=== PATIENT | male | born 1950 | race Hispanic/Latino ===

== ENCOUNTER 2016-09-28 14:45 | Emergency (ER) | payer OTHER, MEDICARE ==
[~2016-09-28] VITALS: Ht 172.7 cm; Wt 72.6 kg
[2016-09-28 14:50] VITALS: BP 119/65
[2016-09-28] MEDS ORDERED: CLARITIN10 M1 PO (15:02)
[2016-09-28] MEDS ORDERED: NORVASC2.5 M1 PO (15:02)
[2016-09-28] MEDS ORDERED: SENOKOT8.6 M2 PO (15:02)
[2016-09-28] MEDS ORDERED: MIRALAX17 G1 PO (15:06)
[2016-09-28] MEDS ORDERED: LACTULOSE10 GM/153 PO (15:14)
--- NOTE | 2016-09-28 15:27 | ED HEAD/FACIAL INJ COMPLAINT ---
History of Present Illness General Chief Complaint: Fall Stated Complaint: FALL Source: patient, family, old records, EMS, W10 Exam Limitations: clinical condition, dementia Vital Signs & Intake/Output Vital Signs & Intake/Output Vital Signs Date Time Temp Pulse Resp B/P B/P Pulse O2 O2 Flow FiO2 Mean Ox Delivery Rate 09/28 1450 98.1 94 16 119/65 94 Room Air Allergies Coded Allergies: NO KNOWN ALLERGIES (08/17/11) Reconcile Medications Amlodipine (Norvasc) 2.5 MG TABLET 1 TAB PO DAILY HTN (Reported) Lactulose 10 GRAM/15 ML SOLUTION 30 ML PO BID CONSTIPATION (Reported) Loratadine (Claritin) 10 MG TABLET 1 TAB PO DAILY ALLERGY (Reported) Polyethylene Glycol 3350 (Miralax) 17 GRAM POWD.PACK 1 PAC PO DAILY CONSTIPATION (Reported) dissolve in water Sennosides (Senokot) 8.6 MG TABLET 1 TAB PO BID CONSTIPATION (Reported) Triage Note: PT FOUND ON FLOOR IN ALF PRONE WITH TOWEL UNDER HIS FACE. PT WAS FACE DOWN INTO TOWEL. PT ARRIVES BY AMBULANCE WITH LARGE HEMATOMA TO FH AND BLOODY NOSE. PT IS NON VERBAL PER EMS STATES THAT IS WHAT ECF NURSE TOLD THEM. PT BLOWING AIR BETWEEN HIS LIPS. Triage Nurses Notes Reviewed? yes Onset: Just prior to arrival Severity: moderate Location: frontal Method of Injury: direct blow, fall Loss of Consciousness: no loss of consciousness HPI: Prior to admission patient fell out of wheelchair onto his upper body and face with his wheelchair landing on top. He sustained facial injuries. There was no loss of consciousness fever chills nausea vomiting diarrhea abdominal pain chest pain shortness of breath headache dysuria noted by staff. Past History Travel History Traveled to [place] past 21 day No Medical History Any Pertinent Medical History? see below for history Neurological: dementia, APHASIA Cardiovascular: CHF, hypertension Gastrointestinal: CONSTIPATION Renal: GOUT Psychiatric: anxiety, depression Blood Disorders: IRON DEF. ANEMIA History of MRSA: No History of VRE: No History of CDIFF: No Surgical History Surgical History: non-contributory Psychosocial History Who do you live with Family Services at Home Home Health Aide What is your primary language Panamanian Tobacco Use: Never used ETOH Use: denies use Illicit Drug Use: denies illicit drug use Family History Hx Contributory? No Review of Systems Review of Systems Constitutional: Reports: no symptoms. EENTM: Reports: no symptoms. Respiratory: Reports: no symptoms. Cardiovascular: Reports: no symptoms. GI: Reports: no symptoms. Genitourinary: Reports: no symptoms. Musculoskeletal: Reports: no symptoms. Skin: Reports: see HPI. Neurological/Psychological: Reports: no symptoms. Hematologic/Endocrine: Reports: no symptoms. Immunologic/Allergic: Reports: no symptoms. All Other Systems: Reviewed and Negative Physical Exam Physical Exam General Appearance: well developed/nourished, awake, mild distress Head: frontal abrasion and contusion Eyes: Bilateral: PERRL, EOMI. Ears, Nose, Throat: normal pharynx, hearing grossly normal, Widened nasal bridge with epistaxis dried no septal hematoma Neck: normal inspection, supple Respiratory: normal breath sounds Cardiovascular: regular rate/rhythm Gastrointestinal: soft, non-tender Back: normal inspection Extremities: normal inspection, normal range of motion, no edema Psychiatric: awake, alert, oriented x 3 Cranial Nerves: normal hearing, PERRL Coordination/Gait: ABN nose to finger (R), ABN nose to finger (L) Motor/Sensory: motor deficit, sensory deficit Reflexes: 2+: bicep (R), bicep (L). Skin: intact, normal color, warm/dry Lymphatic: no anterior cervical jaime Progress Differential Diagnosis: facial fracture, ICH, skull fracture Plan of Care: Orders Procedure Date/time Status CT HEAD WO IV CONTRAST 09/[address] MAXILLOFACIAL W/O CON 09/[address] CERV SPINE WO IV CONTRAST 09/29 1455 Active Diagnostic Imaging: Viewed by Me: CT Scan. Discussed w/RAD: CT Scan. Radiology Impression: 1. No acute intracranial hemorrhage. 2. A small anterior frontal soft tissue swelling without acute skull fracture. 3. Moderate brain volume loss. 4. Moderate ventriculomegaly, more than expected for the degree of brain volume loss and suggests some degree of hydrocephalus. Neurologic evaluation suggested. 5. No acute fracture or dislocation of cervical spine. 6. Mild degenerative disc disease at C5-C6, C6-C7 and C7-T1 levels. 7. No acute facial fracture. Departure Departure Time of Disposition: 1658 Disposition: STILL A PATIENT Condition: Stable Clinical Impression Primary Impression: Contusion of face Qualifiers: Encounter type: initial encounter Qualified Code: S00.83XA - Contusion of other part of head, initial encounter Secondary Impressions: Fall at detention Qualifiers: Encounter type: initial encounter Qualified Codes: W19.XXXA - Unspecified fall, initial encounter; Y92.129 - Unspecified place in detention as the place of occurrence of the external cause Referrals: MEDARDO GONZALEZ MD (PCP/Family) Departure Forms: Customer Survey General Discharge Information
--- NOTE | 2016-09-28 16:33 | CT SCAN REPORT ---
EXAMINATION: CT HEAD WITHOUT CONTRAST CLINICAL INFORMATION: Fall, frontal contusion COMPARISON: 10/08/2012 CT scan of head TECHNIQUE: Contiguous axial imaging all of the head and face were performed from the skull base to vertex without intravenous administration of contrast. In addition, helical noncontrast CT imaging was acquired through the cervical spine and source images were reviewed along with axial reconstructions and sagittal and coronal MPRs. DLP: 1856.94 mGy-cm. FINDINGS: CT HEAD: There is moderate loss of brain volume with associated dilatation of CSF spaces, more than expected for patient's age. There is moderate symmetrical dilatation of the ventricles with dilatation of the temporal horn of lateral ventricles. The dilatation of ventricles is more than expected for the degree of brain volume loss and suggests some degree of hydrocephalus. There is no evidence of acute intracranial hemorrhage or territorial infarction. No abnormal mass effect or midline shift is seen. Tate to white matter differentiation is well preserved. No extra-axial fluid collections are identified. Although the exam is somehow limited due to presence of motion artifact, no acute skull fracture is seen. There is anterior frontal soft tissue swelling, measures about 2.5 cm in transverse diameter and about 7 mm in thickness. The mastoid air cells and visualized portions of the paranasal sinuses are well aerated. CT CERVICAL SPINE: The vertebral body height and alignment of cervical spine are within normal limits. There is mild narrowing of C5-C6, C6-C7 and C7-T1 intervertebral disc spaces with adjacent small marginal osteophytes. The intervertebral disc spaces are otherwise well preserved. The craniocervical and cervicothoracic junctions are within normal limits. The posterior elements are intact. There is no acute fracture or dislocation of cervical spine. The paraspinal soft tissue is unremarkable. Atelectatic changes in the posterior right upper lobe noted. The visualized lung apices are otherwise clear. No pneumothorax. CT MAXILLOFACIAL : There is no acute facial fracture. The temporomandibular joints are unremarkable without evidence of acute traumatic injury. The visualized paranasal sinuses and mastoid air cells are clear. The orbits are intact. No nasal bone fracture. IMPRESSION: 1. No acute intracranial hemorrhage. 2. A small anterior frontal soft tissue swelling without acute skull fracture. 3. Moderate brain volume loss. 4. Moderate ventriculomegaly, more than expected for the degree of brain volume loss and suggests some degree of hydrocephalus. Neurologic evaluation suggested. 5. No acute fracture or dislocation of cervical spine. 6. Mild degenerative disc disease at C5-C6, C6-C7 and C7-T1 levels. 7. No acute facial fracture.
== END 2016-09-28 17:37 ==
LOC: ERH 14:45
DX: S00.83XA Contusion of other part of head, initial encounter (principal); W05.0XXA Fall from non-moving wheelchair, initial encounter; Y92.129 Unspecified place in nursing home as the place of occurrence of the external cause; Y93.9 Activity, unspecified

== ENCOUNTER 2017-10-21 03:40 | Inpatient (IN) | payer OTHER ==
[~2017-10-21] VITALS: Ht 177.8 cm; Wt 82.4 kg
[~2017-10-21 03:40] MED LIST: CLARITIN10 M1 PO; LACTULOSE10 GM/153 PO; MIRALAX17 G1 PO; NORVASC2.5 M1 PO; SENOKOT8.6 M2 PO
--- NOTE | 2017-10-21 03:47 | ED DYSPNEA/ASTHMA COMPLAINT ---
History of Present Illness General Chief Complaint: General Adult Stated Complaint: BIBA ? HYPOTENSION Source: old records, EMS, [facility] Exam Limitations: not alert/orientated Vital Signs & Intake/Output Vital Signs & Intake/Output Vital Signs Date Time Temp Pulse Resp B/P B/P Pulse O2 O2 Flow FiO2 Mean Ox Delivery Rate 10/21 0552 71 18 104/65 94 Nasal 2.0L Cannula 10/21 0522 97.8 94 18 115/74 94 Nasal 2.0L Cannula 10/21 0518 92/60 10/21 0504 97.8 92 18 92/60 97 Nasal 2.0L Cannula 10/21 0441 103/66 10/21 0431 85/65 10/21 0403 78 18 95/69 94 Room Air 10/21 0400 95 Room Air 10/21 0346 97.6 85 20 86/58 93 Room Air Allergies Coded Allergies: NO KNOWN ALLERGIES (08/17/11) Reconcile Medications Amlodipine (Norvasc) 2.5 MG TABLET 1 TAB PO DAILY HTN (Reported) Lactulose 10 GRAM/15 ML SOLUTION 30 ML PO BID CONSTIPATION (Reported) Loratadine (Claritin) 10 MG TABLET 1 TAB PO DAILY ALLERGY (Reported) Polyethylene Glycol 3350 (Miralax) 17 GRAM POWD.PACK 1 PAC PO DAILY CONSTIPATION (Reported) dissolve in water Sennosides (Senokot) 8.6 MG TABLET 1 TAB PO BID CONSTIPATION (Reported) Triage Nurses Notes Reviewed? yes Onset: Gradual Duration: hour(s): Timing: recent history Severity: moderate Activities at Onset: none Prior Episodes/Possible Cause: no prior episodes Associated Symptoms: cough HPI: 67-year-old gentleman presents from a retirement facility with a history of a aphasia and dementia. The nurse practitioner of the SNF called saying that his systolic blood pressure was 70. 911 was called. Upon their arrival the medics found that his systolic blood pressure was 95. His O2 sat was 88% when lying flat but improved to 92-93 % on room air and corrected to 97% on 2 L nasal cannula. Per the medics there has been no vomiting diarrhea or trauma. Per their assessment, "he felt warm." Past History Travel History Traveled to [place] past 21 day No Medical History Any Pertinent Medical History? see below for history Neurological: dementia, APHASIA Cardiovascular: CHF, hypertension Gastrointestinal: CONSTIPATION Renal: GOUT Psychiatric: anxiety, depression Blood Disorders: IRON DEF. ANEMIA History of MRSA: No History of VRE: No History of CDIFF: No Surgical History Surgical History: non-contributory Psychosocial History Who do you live with Family Services at Home Home Health Aide What is your primary language Tunisian Family History Hx Contributory? No Review of Systems Review of Systems Constitutional: Reports: no symptoms. EENTM: Reports: no symptoms. Respiratory: Reports: no symptoms. Cardiovascular: Reports: no symptoms. GI: Reports: no symptoms. Genitourinary: Reports: no symptoms. Musculoskeletal: Reports: no symptoms. Skin: Reports: no symptoms. Neurological/Psychological: Reports: no symptoms. Hematologic/Endocrine: Reports: no symptoms. Immunologic/Allergic: Reports: no symptoms. All Other Systems: Reviewed and Negative Physical Exam Physical Exam Respiratory: rhonchi Comments: Review of Systems - except as otherwise noted in HPI All Other Systems: Reviewed and Negative Physical Exam Physical Exam General Appearance: well developed/nourished, no apparent distress Head: atraumatic, normal appearance Eyes: Bilateral: normal appearance. Ears, Nose, Throat: normal pharynx, dry mucosa Neck: normal inspection, supple, full range of motion Respiratory:chest non-tender, BILATERAL RHONCHI, NO RALES/WHEEZES Cardiovascular: regular rate/rhythm Gastrointestinal: normal bowel sounds, soft, non-tender, no organomegaly Back: normal inspection, normal range of motion Extremities: normal inspection, normal capillary refill, normal range of motion, no edema Neurologic/Psych: no motor/sensory deficits, awake, nonverbal Skin: intact, normal color, warm/dry, poor skin turgor. Core Measures ACS in differential dx? No CVA/TIA Diagnosis No Sepsis Present: No Sepsis Focused Exam Completed? No Progress Differential Diagnosis: asthma, bronchitis, CHF, COPD, pneumonia Plan of Care: Orders Procedure Date/time Status Nothing by Mouth 10/21 B Active Saline Lock 10/21 06 Active Misc Message 10/21 06 Active ED Holding Orders 10/21 06 Active Admit to inpatient 10/21 0602 Active Vital Signs 10/21 06 Active Code Status 10/21 06 Active URINALYSIS 10/21 0508 Complete EKG 10/21 0415 Active TROPONIN LEVEL 10/21 0346 Complete LIPASE 10/21 0346 Complete HEPATIC FUNCTION PANEL 10/21 0346 Complete CBC WITHOUT DIFFERENTIAL 10/21 0346 Complete BASIC METABOLIC PANEL 10/21 0346 Complete AMYLASE 10/21 0346 Complete EKG 10/21 0346 Active Current Medications Sig/Sharda Start time Last Medication Dose Stop Time Status Admin Sodium Chloride 1,000 ML BOLUS ONE 10/21 0545 UNVr 10/21 (Normal Saline 0.9%) 10/21 0644 0538 Sodium Chloride 500 ML BOLUS ONE 10/21 043 UNVr 10/21 (Normal Saline 0.9%) 10/21 05 043 Laboratory Tests 10/21/17 0519: Urinalysis LIGHT H, Urine Color YEL, Urine Clarity CLEAR, Urine pH 6.0, Ur Specific [place] 1.025, Urine Protein 30 H, Urine Ketones TRACE H, Urine Nitrite NEG, Urine Bilirubin NEG, Urine Urobilinogen 1.0, Ur Leukocyte Esterase TRACE H, Ur Microscopic SEDIMENT EXAMINED, Urine RBC 3-5, Urine WBC 1-3 H, Urine Bacteria MANY H, Urine Hemoglobin MOD H, Urine Glucose NEG 10/21/17 0410: Anion Gap 10, Estimated GFR 43 L, BUN/Creatinine Ratio 18.8, Glucose 111 H, Calcium 9.2, Total Bilirubin 0.5, Direct Bilirubin 0.3, AST 21, ALT 33, Alkaline Phosphatase 110, Troponin I < 0.01, Total Protein 6.9, Albumin 3.4 L, Amylase 83, Lipase 128, CBC w Diff NO MAN DIFF REQ, RBC 4.01 L, MCV 94.2 H, MCH 31.2 H, MCHC 33.1, RDW 13.3, MPV 8.5, Gran % 57.3, Lymphocytes % 24.8, Monocytes % 16.9 H, Eosinophils % 0.8, Basophils % 0.2, Absolute Granulocytes 4.6, Absolute Lymphocytes 2.0, Absolute Monocytes 1.3 H, Absolute Eosinophils 0.1, Absolute Basophils 0 Diagnostic Imaging: Viewed by Me: Radiology Read. Discussed w/RAD: Radiology Read. CXR Impression: PATIENT: STEFFI TRISTAN PRESENT AGE: 67 PATIENT ACCOUNT NO: [id number] : 48 LOCATION: [facility] ORDERING PHYSICIAN: Laurent Arrieta MD SERVICE DATE: 10/21/17 EXAM TYPE: RAD - XRY-PORTABLE CHEST XRAY EXAMINATION: XR PORTABLE CHEST CLINICAL INFORMATION: Chest pain COMPARISON: 10/08/2012 TECHNIQUE: Portable frontal view of the chest was obtained. FINDINGS: Cardiac leads overlie the chest. Lung volumes are low with bronchovascular crowding. No dense consolidation. No pleural effusion or pneumothorax. The cardiomediastinal silhouette is unchanged, with a calcified aorta. IMPRESSION: Low lung volumes with bronchovascular crowding. No dense consolidation. DICTATED BY: Chester Lakhani MD DATE/TIME DICTATED:10/21/17421 SEEING EYE DOG TEACHER:MONTSERRAT DATE/TIME TRANSCRIBED:421 CONFIDENTIAL, DO NOT COPY WITHOUT APPROPRIATE AUTHORIZATION. < Electronically signed in Other Vendor System> SIGNED BY: Kar REYNOSO, Chester 10/21/17427 Initial ED EKG: afib, likely artifact. Repeat EKG: unchanged Comments: EKG... significant artifact... appears regular rhythm. i doubt afib. Departure Departure Disposition: STILL A PATIENT Condition: Stable Clinical Impression Primary Impression: Dehydration Secondary Impressions: Acute renal failure Referrals: Joann Valentino MD Departure Forms: Customer Survey General Discharge Information Admission Note [facility] Documentation of Exam: Documentation of any treatments & extenuating circumstances including Concerns Regarding Discharge (functional status, medication knowledge or non-compliance, living conditions, etc.) that warrant an admission rather than observation: pt with elevated creatinine, hypotensive, but afebrile with normal WBC count... I doubt infection/distributive shock. Pt merits iv fluids, follow electrolytes in context of his chf history. Critical Care Note Critical Care Note Critical Care Time: 30-74 min
[2017-10-21 04:21] LABS: ABSOLUTE BASOPHIL COUNT 0 /CUMM (0.0-0.2); ABSOLUTE EOSINOPHIL COUNT 0.1 /CUMM (0.0-0.7); ABSOLUTE GRANULOCYTE CT 4.6 /CUMM (1.4-6.5); ABSOLUTE MONOCYTE COUNT 1.3 /CUMM (0.10-0.60); BASOPHIL % 0.2 % (0.0-2.0); EOSINOPHIL % 0.8 % (0-5); GRANULOCYTE % 57.3 % (42.2-75.2); HEMATOCRIT 37.8 % (42-52); MEAN CORPUSCULAR HGB 31.2 PG (27.0-31.0); MEAN CORPUSCULAR HGB CONC 33.1 G/DL (33.0-37.0); MEAN CORPUSCULAR VOLUME 94.2 FL (80.0-94.0); MEAN PLATELET VOLUME 8.5 FL (7.4-10.4); PLATELET COUNT 267 /CUMM (130-400); RBC DISTRIBUTION WIDTH 13.3 % (11.5-14.5); RED BLOOD CELL CT 4.01 /CUMM (4.70-6.10)
--- NOTE | 2017-10-21 04:28 | RADIOLOGY REPORT ---
EXAMINATION: XR PORTABLE CHEST CLINICAL INFORMATION: Chest pain COMPARISON: 10/08/2012 TECHNIQUE: Portable frontal view of the chest was obtained. FINDINGS: Cardiac leads overlie the chest. Lung volumes are low with bronchovascular crowding. No dense consolidation. No pleural effusion or pneumothorax. The cardiomediastinal silhouette is unchanged, with a calcified aorta. IMPRESSION: Low lung volumes with bronchovascular crowding. No dense consolidation.
--- NOTE | 2017-10-21 09:03 | History & Physical ---
Ismael Jeter 10/21/17 0832: General Information and HPI MD Statement: I have seen and personally examined STEFFI TRISTAN and documented this H&P. The patient is a 67 year old M who presented with a patient stated chief complaint of [hypotension and chest congestion]. Source of Information: family, old records Exam Limitations: unable to give history, dementia, physical impairment History of Present Illness: Mr. Tristan is a 67 year old gentleman who comes from [facility] after being found hypotensive. He is accompanied by his and daughter who provide his history as he has dementia and aphasia. He also has a PMH of HTN, and gout. Per the EMS report, the patient was found be to hypotensive 76/60 at which point EMS was called. Upon their arrival the patients BP had improved, however his O2 sat was in the high 80s, which corrected when he was sat up to 93%. As the patient is aphasic, and cognitively impaired, it is difficult to assess the review of symptoms, however, the family notes that he appears to be at his baseline, but has been congested over the last few days and has been coughing, non-productive. They deny any fevers, or chills. They denied any change in his PO intake, and state he actually has been eating quite well. He eats a pureed diet/thin liquids. In the ER, the patient's blood pressure was 86/58, pulse ox 93% on 2 L, respiratory rate 20, heart rate 85, temperature 97.6. The patients blood pressure responded to normal saline, up to 117/60. Labs, H&H 12.5/37.8, white blood cell count 8.0. Electrolytes unremarkable, BUNs/creatinine 30/1.6, glucose 111, troponin less than 0.01. UA showed proteinuria with trace ketones, trace leukocyte esterase, nitrite negative, 1-3 white blood cells with no epithelial cells, urine hemoglobin and bacteria. Lactic acid pending. CXR showed low lung volumes with bronchovascular crowding. No dense consolidation. No pleural effusion or pneumothorax. The cardiomediastinal silhouette is unchanged, with a calcified aorta. Allergies/Medications Allergies: Coded Allergies: NO KNOWN ALLERGIES (08/17/11) Home Med list Amlodipine (Norvasc) 2.5 MG TABLET 1 TAB PO DAILY HTN (Reported) Lactulose 10 GRAM/15 ML SOLUTION 30 ML PO BID CONSTIPATION (Reported) Loratadine (Claritin) 10 MG TABLET 1 TAB PO DAILY ALLERGY (Reported) Polyethylene Glycol 3350 (Miralax) 17 GRAM POWD.PACK 1 PAC PO DAILY CONSTIPATION (Reported) dissolve in water Sennosides (Senokot) 8.6 MG TABLET 1 TAB PO BID CONSTIPATION (Reported) Past History Travel History Traveled to [place] past 21 day No Medical History Neurological: dementia, APHASIA Cardiovascular: CHF, hypertension Gastrointestinal: CONSTIPATION Renal: GOUT Psychiatric: anxiety, depression Blood Disorders: IRON DEF. ANEMIA History of MRSA: No History of VRE: No History of CDIFF: No Surgical History Surgical History: non-contributory Past Family/Social History Psychosocial History [facility] do you [facility] Functional Ability ADLs Needs Assist: dressing, eating, toileting, bathing. Ambulation: wheelchair IADLs Needs Assist: shopping, housework, finances, food prep, telephone, transportation, medication admin. Employment History Employment [employer] Review of Systems Review of Systems Constitutional: Reports: see HPI. Exam & Diagnostic Data Last 24 Hrs of Vital Signs/I&O Vital Signs Date Time Temp Pulse Resp B/P B/P Pulse O2 O2 Flow FiO2 Mean Ox Delivery Rate 10/21 0839 98.3 83 18 94/76 94 / 0810 97.3 74 20 103/62 96 Nasal 2.0L Cannula 10/21 0658 79 18 117/60 94 Nasal 2.0L Cannula 10/21 0630 97.6 67 18 114/73 96 Nasal 2.0L Cannula 10/21 0552 71 18 104/65 94 Nasal 2.0L Cannula 10/21 0522 97.8 94 18 115/74 94 Nasal 2.0L Cannula / 0518 92/60 05/30 0504 97.8 92 18 92/60 97 Nasal 2.0L Cannula / 0441 103/66 05/30 0431 85/65 / 0403 78 18 95/69 94 Room Air / 0400 95 Room Air / 0346 97.6 85 20 86/58 93 Room Air Intake & Output / 1600 05/30 0800 05/30 0000 Intake Total Output Total Balance Patient 79.379 kg Weight Weight Estimated Measurement Method Physical Exam General Appearance Alert, Cooperative, No Acute Distress, not oriented. non- responsive. Skin No Rashes Skin Temp/Moisture Exam: Warm/Dry HEENT Atraumatic, PERRLA, dry mucus membranes. Neck No JVD Cardiovascular Normal S1, Normal S2 Lungs rhonchi appreciated diffusely in the anterior lung pruitt. No wheezing. Abdomen Normal Bowel Sounds, Soft, No Tenderness Extremities No Tenderness/Swelling Sepsis Peripheral Pulse Location: Radial Sepsis Peripheral Pulse Exam: Normal Sepsis Cap Refill Exam: <2 Sec Last 24 Hrs of Labs/Dwayne: Laboratory Tests 10/21/17 0915: Lactic Acid Pending 10/21/17 0519: Urinalysis LIGHT H, Urine Color YEL, Urine Clarity CLEAR, Urine pH 6.0, Ur Specific [place] 1.025, Urine Protein 30 H, Urine Ketones TRACE H, Urine Nitrite NEG, Urine Bilirubin NEG, Urine Urobilinogen 1.0, Ur Leukocyte Esterase TRACE H, Ur Microscopic SEDIMENT EXAMINED, Urine RBC 3-5, Urine WBC 1-3 H, Urine Bacteria MANY H, Urine Hemoglobin MOD H, Urine Glucose NEG 10/21/17 0410: Anion Gap 10, Estimated GFR 43 L, BUN/Creatinine Ratio 18.8, Glucose 111 H, Calcium 9.2, Total Bilirubin 0.5, Direct Bilirubin 0.3, AST 21, ALT 33, Alkaline Phosphatase 110, Troponin I < 0.01, Total Protein 6.9, Albumin 3.4 L, Amylase 83, Lipase 128, CBC w Diff NO MAN DIFF REQ, RBC 4.01 L, MCV 94.2 H, MCH 31.2 H, MCHC 33.1, RDW 13.3, MPV 8.5, Gran % 57.3, Lymphocytes % 24.8, Monocytes % 16.9 H, Eosinophils % 0.8, Basophils % 0.2, Absolute Granulocytes 4.6, Absolute Lymphocytes 2.0, Absolute Monocytes 1.3 H, Absolute Eosinophils 0.1, Absolute Basophils 0 Diagnostic Data EKG Results NSR Assessment/Plan Assessment: Mr. Tristan is a 67 year old gentleman who comes from [facility] after being found hypotensive. He is accompanied by his and daughter who provide his history as he has dementia and aphasia. He also has a PMH of HTN. Labs, H&H 12.5/37.8, white blood cell count 8.0. Electrolytes unremarkable, BUNs/creatinine 30/1.6, glucose 111, troponin less than 0.01. UA showed proteinuria with trace ketones, trace leukocyte esterase, nitrite negative, 1-3 white blood cells with no epithelial cells, urine hemoglobin and bacteria. Lactic acid pending. CXR showed low lung volumes with bronchovascular crowding. No dense consolidation. No pleural effusion or pneumothorax. The cardiomediastinal silhouette is unchanged, with a calcified aorta. Problem List * Hypotension * Chest congestion * TRACIE * Hx of dementia with aphasia * Hx of HTN Assessment and Plan Hypotension with TRACIE * The patient has a history of HTN, so in spite of BP in the 90s, he is hypotensive compared to his baseline. He does appear slightly dry however his chest congestion may be concerning for a brewing infection, although he is afebrile and does not have a white count. Other possible source of infection or urinary with pyuria, however again he was not febrile and does not have an elevated white count. * Other possible causes of hypotension include decreased by mouth intake, although the family states otherwise. * We will admit the pt to for fluid resus. and TRACIE. Hold amlodipine. * The patient has been responsive to fluids, and appears clinically at his baseline. * Aside from BP measurements he does have evidence of hypotension given his acute kidney injury. We will reevaluate labs at 1200 with a repeat lactic acid and determine if his HPI was indeed secondary to prerenal causes. * For his chest congestion, we will give liquid guaifenesin to try and help him expectorate. * If his hypotension continues in spite of fluid resuscitation, we will consider starting him on antibiotic coverage to cover HCAP as he comes from a SNF. Additionally, we will draw blood cultures and send urine cultures, along w urine strep/legionella Ag. FULL CODE Puree food/thin liquid ALPS for dvt ppx pain path as ordered. As Ranked By This Provider Problem List: 1. Dehydration 2. Acute renal failure 3. DEMENTIA (APHASIC) Core Measures/Misc (02/08) Acute Coronary Syndrome ACS Diagnosis: No Congestive Heart Failure Congestive Heart Failure Diagnosis No Cerebrovascular Accident CVA/TIA Diagnosis: No VTE (View Protocol) VTE Risk Factors Age>40 No Mechanical VTE Prophylaxis d/t N/A MechProphylax Ordered No VTE Pharm Prophylaxis d/t Other Sepsis (View protocol) Sepsis Present: No If YES complete Sepsis Event Note If YES complete Sepsis Event Note Arole MD,Yonathanwilliam 10/21/17 1533: Core Measures/Misc (02/08) Sepsis (View protocol) If YES complete Sepsis Event Note If YES complete Sepsis Event Note Attending MD Review Statement Attending Statement Attending MD Statement: examined this patient, discuss w/resident/PA/NETWORK CONTROLLER, agreed w/resident/PA/NETWORK CONTROLLER, reviewed EMR data (avail), discussed with nursing, discussed with case mgmt, amended to note Attending Assessment/Plan: Patient seen and examined. History and physical is as documented by the certified medical technician assistant above. Unable to obtain any history from the patient due to his dementia. Etiology of his hypotension is presumed to be due to volume depletion however there is no clear evidence of why he is volume depleted. Given his dementia poor oral intake may be the cause. There has been no report of diarrhea or vomiting. Hemoglobin level is stable and not suggestive of bleeding. Recommendations: -Admit to the inpatient medical service. -Continue maintenance hydration with half normal saline at 75 cc an hour. -Hold his amlodipine for now. -Check random cortisol level. -Check orthostatic vitals. -Resume his diet. -Supportive care for his dementia
[2017-10-21 14:21] VITALS: BP 110/64
[2017-10-21 23:24] VITALS: BP 118/78
[2017-10-22 06:29] VITALS: BP 100/80
--- NOTE | 2017-10-22 07:53 | PN- Housestaff ---
Ian REYNOSO,Lashawn 10/22/17 0752: Subjective Follow-up For: Hypotension TRACIE - resolved H/O Dementia with progressive aphasia Chest congestion Subjective: Patient was seen and examined today. Patient's family was present this morning. Report patient is back to his baseline. Patient is nonverbal at baseline, does not follow commands. Per family he will open his eyes when he wants to and tends to look at the ceiling. No acute events overnight. Review of Systems Constitutional: Reports: see HPI. Objective Last 24 Hrs of Vital Signs/I&O Vital Signs Date Time Temp Pulse Resp B/P B/P Pulse O2 O2 Flow FiO2 Mean Ox Delivery Rate 10/22 1429 97.6 67 20 116/74 97 Nasal Cannula 10/22 1423 96 Nasal 2.0L Cannula 10/22 0800 94 Nasal 2.0L Cannula 10/22 0629 98.1 83 20 100/80 94 Room Air 10/21 2324 98.1 83 18 118/78 93 Nasal Cannula 10/21 2156 Nasal 2.0L Cannula 10/21 1705 93 Nasal 2.0L Cannula 10/21 1702 Nasal 2.0L Cannula Intake & Output 10/22 1600 10/22 0800 10/22 0000 Intake Total 480 200 Output Total Balance 480 200 Intake, IV 200 Intake, Oral 480 Number 0 Bowel Movements Patient 179 lb Weight Weight Bed scale Measurement Method Physical Exam General Appearance: Alert, No Acute Distress, does not follow commands, resting comfortably Skin Temp/Moisture Exam: Warm/Dry HEENT: Atraumatic, Mucous Membr. moist/pink Cardiovascular: Regular Rate, Normal S1, Normal S2 Lungs: coarse breath sounds Abdomen: Normal Bowel Sounds, Soft, No Tenderness Neurological: unable to assess due to aphasia, not following commands Extremities: No Clubbing, No Cyanosis, No Edema, Normal Pulses, No Tenderness/ Swelling Current Medications: Current Medications Sig/Sharda Start time Last Medication Dose Route Stop Time Status Admin Acetaminophen 650 MG Q6 PRN 10/21 0815 AC PO Acetaminophen 325 MG Q6P PRN 10/21 0815 AC PO Albuterol Sulfate 3 ML Q4P PRN 10/21 1715 AC INH Dextrose/Sodium 1,000 ML Q13H 10/22 1545 AC 10/22 Chloride IV 10/23 0444 1612 Dextrose/Sodium 1,000 ML Q13H 10/21 1500 DC Chloride IV 10/22 0359 Guaifenesin 10 ML Q6P PRN 10/21 914 AC PO Lactulose 20 GM DAILY 10/21 0900 AC 10/21 PO 0915 Loratadine 10 MG DAILY 10/21 09 AC 10/21 PO 0915 Nystatin 1 JOSE ALEJANDRO BID 10/21 2100 AC 10/22 TOP 0855 Polyethylene Glycol 17 GM DAILY 10/21 0900 AC 10/21 PO 0915 Potassium Chloride 10 MEQ Q1H 10/21 1830 DC 10/22 IV 10/21 1931 0007 Senna 187 MG AT BEDTIME 10/21 2100 AC PO Last 24 Hrs of Lab/Dwayne Results Last 24 Hrs of Labs/Mics: Laboratory Tests 10/22/17 0607: Anion Gap 9, Estimated GFR > 60, BUN/Creatinine Ratio 23.8, CBC w Diff NO MAN DIFF REQ, RBC 3.66 L, MCV 93.9, MCH 31.9 H, MCHC 34.0, RDW 13.5, MPV 8.6, Gran % 57.1, Lymphocytes % 29.0, Monocytes % 11.2 H, Eosinophils % 2.2, Basophils % 0.5, Absolute Granulocytes 4.6, Absolute Lymphocytes 2.3, Absolute Monocytes 0.9 H, Absolute Eosinophils 0.2, Absolute Basophils 0 Microbiology 10/22 1533 LOWER RESP: Respiratory Culture - COLB 10/22 1533 LOWER RESP: Gram Stain - COLB Assessment/Plan Assessment: Patient is a 67 y/o male with PMH of dementia with progressive aphasia, HTN, gout, presenting from [facility] after being found to be hypotensive. Patient is admitted to the telemetry floor for management of the followin. Hypotension - likely secondary to dehydration, resolved. 2. TRACIE secondary to dehydration, resolved. 3. Chest congestion and cough, possible aspiration -modified barium swallow today. 4. Chronic conditions: dementia with progressive aphasia Plan: continuous tele monitoring gentle IV hydration repeat BEP in AM strict I/O TRC CHest PT DuoNeb Continue home medications Failed swallow evaluation. MBS done today. Will place on ground and nectar thick diet. Code: FC DVT PPx: ALPS Diet: ground with nectar thick Problem List: 1. Dehydration 2. Acute renal failure 3. DEMENTIA (APHASIC) Pain Ratin Pain Location: n/a Pain Goal: Remain pain free Pain Plan: tylenol PRN Tomorrow's Labs & Rationales: CBC BEP Harleen REYNOSO,Shayla 10/22/17 1110: Attending MD Review Statement Attending Statement Attending MD Statement: examined this patient, discuss w/resident/PA/CARPENTER MINE, agreed w/resident/PA/CARPENTER MINE, reviewed EMR data (avail) Attending Assessment/Plan: 67M PMH HTN, gout, progressive aphasia brought in from [facility] for hypotension. 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 Over the past 8 years he went from working and speaking normally to his current state, which is bedbound, aphasic, and minimally interactive with his environment. He was found to be hypotension in ER 76/60, but this improved with IV hydration. Per daughter the patient has had a deep cough for 4 days. He is at his baseline mental status. He had TRACIE on admission that resolved. 1. Hypotension 2. TRACIE 3. Dehydration 4. Aphasia Plan - Continue as general medicine, no telemetry - Gentle IV hydration - Barium swallow - Speech therapy consult - Sputum culture - Elevate head of bed - Suctioning - DVT PPx - Continue home meds - Anticipated discharge back to [facility] tomorrow
[2017-10-22 08:26] LABS: ABSOLUTE BASOPHIL COUNT 0 /CUMM (0.0-0.2); ABSOLUTE EOSINOPHIL COUNT 0.2 /CUMM (0.0-0.7); ABSOLUTE GRANULOCYTE CT 4.6 /CUMM (1.4-6.5); ABSOLUTE LYMPH COUNT 2.3 /CUMM (1.2-3.4); ABSOLUTE MONOCYTE COUNT 0.9 /CUMM (0.10-0.60); BASOPHIL % 0.5 % (0.0-2.0); EOSINOPHIL % 2.2 % (0-5); GRANULOCYTE % 57.1 % (42.2-75.2); HEMATOCRIT 34.4 % (42-52); MEAN CORPUSCULAR HGB 31.9 PG (27.0-31.0); MEAN CORPUSCULAR VOLUME 93.9 FL (80.0-94.0); MEAN PLATELET VOLUME 8.6 FL (7.4-10.4); PLATELET COUNT 297 /CUMM (130-400); RBC DISTRIBUTION WIDTH 13.5 % (11.5-14.5); RED BLOOD CELL CT 3.66 /CUMM (4.70-6.10); WHITE BLOOD CELL COUNT 8.1 /CUMM (4.8-10.8)
--- NOTE | 2017-10-22 10:34 | Discharge Summary ---
Visit Information Visit Dates Admission Date: 10/21/17 Discharge Date: 10/23/17 Hospital Course Course Attending Physician: Shayla Canseco MD Primary Care Physician: Alisha Hardy MD Hospital Course: 67 year old gentleman with pmh of dementia with progressive aphasia of unknow etiology by the [facility], HTN, gout sent to [facility] after being found hypotensive (76/60) [facility]. In ED blood pressure was 86/58, pulse ox 93% on 2 L, respiratory rate 20, heart rate 85, temperature 97.6. The patients blood pressure responded to normal saline, up to 117/60. Labs, H&H 12.5/37.8, white blood cell count 8.0. Electrolytes unremarkable, BUNs/creatinine 30/1.6, glucose 111, troponin less than 0.01. UA showed proteinuria with trace ketones, trace leukocyte esterase, nitrite negative, 1-3 white blood cells with no epithelial cells, urine hemoglobin and bacteria. CXR showed low lung volumes with bronchovascular crowding. No dense consolidation. No pleural effusion or pneumothorax. The cardiomediastinal silhouette is unchanged, with a calcified aorta. For his hypotension with TRACIE which was thought to be likely secondary to poor PO intake and dehydration, he was given gentle IVF and his amlodipine was held throughout his hospital course and will be held upon discharge. His BP improved and remained stable with resolution of his TRACIE. Preliminary blood cultures and urine culture showed now growth. Urine strep/legionella Ag were negative. He underwent Barium Swallow which demonstrated significant pooling of the material in the vallecula with multiple consistencies. Deep penetration without aspiration was demonstrated when swallowing thin barium. Ground and nectar thick diet was recommended for him. We strongly urge ongoing discussions with family regarding goals care. Please consider engaging hospice and treatment in place rather that transfer to hospital. Complications: none Allergies: Coded Allergies: NO KNOWN ALLERGIES (08/17/11) Significant Procedures: MODIFIED BARIUM SWALLOW FINDINGS: The patient initiated the swallowing mechanism normally. There was a small residual volume of puree, in the vallecula despite repeat swallowing. The patient swallowed honey well, but there was pooling in the vallecula, which did clear with multiple swallows. Thin barium was given through a spoon. There was deep penetration without sneha aspiration. No sensation was elicited. IMPRESSION: 1. The study demonstrates significant pooling of the material in the vallecula with multiple consistencies. 2. Deep penetration without aspiration was demonstrated when swallowing thin barium. Disposition Summary Disposition Principal Diagnosis: Hypotension Additional Diagnosis: Acute kidney injury Aspiration progressive aphasia of unknow etiology Discharge Disposition: SNF Discharge Instructions General Discharge Information Code Status: Full Code Patient's Diet: ground and nectar thick diet. Patient's Activity: as tolerated Follow-Up Instructions/Appts: follow up with your PCP Medications at Discharge Discharge Medications: Stop taking the following medications: Amlodipine (Norvasc) 2.5 MG TABLET ORAL DAILY Continue taking these medications: Loratadine (Claritin) 10 MG TABLET 1 Tablet ORAL DAILY Sennosides (Senokot) 8.6 MG TABLET 1 Tablet ORAL TWICE DAILY Polyethylene Glycol 3350 (Miralax) 17 GRAM POWD.PACK 1 Packet ORAL DAILY Instructions: dissolve in water Lactulose (Lactulose) 10 GRAM/15 ML SOLUTION 30 Milliliters ORAL TWICE DAILY Copies To: Antony REYNOSO,Alisha [place] Attending Review Statement Documenting Attending: Shayla Canseco MD
--- NOTE | 2017-10-22 11:23 | RADIOLOGY REPORT ---
EXAMINATION: XR MODIFIED BARIUM SWALLOW CLINICAL INFORMATION: Evaluation for aspiration. COMPARISON: None. TECHNIQUE: A modified barium swallow was performed with speech pathologist in attendance. Pur?e, honey thick, nectar and barium thin consistencies were given to the patient and the swallowing mechanism was observed fluoroscopically with several spot films taken. 24 images were obtained. FLUOROSCOPY TIME: 2 minutes and 39 seconds. FINDINGS: The patient initiated the swallowing mechanism normally. There was a small residual volume of puree, in the vallecula despite repeat swallowing. The patient swallowed honey well, but there was pooling in the vallecula, which did clear with multiple swallows. Thin barium was given through a spoon. There was deep penetration without sneha aspiration. No sensation was elicited. IMPRESSION: 1. The study demonstrates significant pooling of the material in the vallecula with multiple consistencies. 2. Deep penetration without aspiration was demonstrated when swallowing thin barium. Speech pathologist assessment issued separately.
[2017-10-22 14:29] VITALS: BP 116/74
[2017-10-22 22:09] VITALS: BP 112/68
[2017-10-23 06:40] VITALS: BP 106/62
--- NOTE | 2017-10-23 07:31 | PN- Housestaff ---
Subjective Follow-up For: Hypotension TRACIE - resolved H/O Dementia with progressive aphasia Chest congestion likely URI Tele-Events Since Last Visit: off tele Subjective: Patient was seen and examined today. Patient remains nonverbal (baseline). Patient resting comfrotably in no acute distress. Family at bedside report patient is at his baseline. Review of Systems Constitutional: Reports: see HPI. Objective Last 24 Hrs of Vital Signs/I&O Vital Signs Date Time Temp Pulse Resp B/P B/P Pulse O2 O2 Flow FiO2 Mean Ox Delivery Rate 10/23 1133 98.5 62 22 106/62 10/23 0800 97 Nasal 2.0L Cannula 10/23 0640 98.5 62 22 106/62 95 Nasal Cannula 10/22 2209 99.1 62 24 112/68 94 10/22 2135 Nasal 2.0L Cannula 10/22 1710 94 Nasal 2.0L Cannula 10/22 1600 97 Nasal 2.0L Cannula 10/22 1429 97.6 67 20 116/74 97 Nasal Cannula 10/22 1423 96 Nasal 2.0L Cannula Intake & Output 10/23 1600 10/23 0800 10/23 0000 Intake Total 60 300 Output Total Balance 60 300 Intake, Oral 60 300 Number 0 Bowel Movements Patient 182 lb Weight Physical Exam General Appearance: No Acute Distress, does not follow commands, opens eyes occasionally HEENT: Atraumatic, Mucous Membr. moist/pink Cardiovascular: Regular Rate, Normal S1, Normal S2 Lungs: Clear to Auscultation, Normal Air Movement Abdomen: Normal Bowel Sounds, Soft, No Tenderness Neurological: does not follow commands, unable to perform complete neuro exam due to patient's baseline aphasia/dementia Extremities: No Clubbing, No Cyanosis, No Edema, Normal Pulses, No Tenderness/ Swelling Current Medications: Current Medications Sig/Sharda Start time Last Medication Dose Route Stop Time Status Admin Acetaminophen 650 MG Q6 PRN 10/21 0815 AC PO Acetaminophen 325 MG Q6P PRN 10/21 0815 AC PO Albuterol Sulfate 3 ML Q4P PRN 10/21 1715 AC INH Dextrose/Sodium 1,000 ML Q13H 10/22 1545 DC 10/22 Chloride IV 10/23 0444 1612 Guaifenesin 10 ML Q6P PRN 10/21 0915 AC PO Lactulose 20 GM DAILY 10/21 0900 AC 10/23 PO 0920 Loratadine 10 MG DAILY 10/21 899 AC 10/23 PO 0920 Nystatin 1 JOSE ALEJANDRO BID 10/21 2099 AC 10/23 TOP 0921 Polyethylene Glycol 17 GM DAILY 10/21 899 AC 10/23 PO 0920 Senna 187 MG AT BEDTIME 10/21 2099 AC 10/22 PO 2222 Last 24 Hrs of Lab/Dwayne Results Last 24 Hrs of Labs/Mics: Laboratory Tests 10/23/17 0717: Anion Gap 9, Estimated GFR > 60, BUN/Creatinine Ratio 16.3, CBC w Diff NO MAN DIFF REQ, RBC 3.65 L, MCV 94.0, MCH 31.9 H, MCHC 34.0, RDW 13.4, MPV 7.9, Gran % 61.5, Lymphocytes % 26.9, Monocytes % 9.1, Eosinophils % 2.3, Basophils % 0.2, Absolute Granulocytes 5.7, Absolute Lymphocytes 2.5, Absolute Monocytes 0.8 H, Absolute Eosinophils 0.2, Absolute Basophils 0 Microbiology 10/22 1533 LOWER RESP: Respiratory Culture - COLB 10/22 1533 LOWER RESP: Gram Stain - COLB Assessment/Plan Assessment: Patient is a 67 y/o male with PMH of dementia with progressive aphasia, HTN, gout, presenting from [facility] after being found to be hypotensive. Patient is admitted to the telemetry floor for management of the followin. Hypotension - likely secondary to dehydration, resolved. 2. TRACIE secondary to dehydration, resolved. 3. Chest congestion and cough, possible aspiration -modified barium swallow today. 4. Chronic conditions: dementia with progressive aphasia Plan: off telemetry discharge to [facility] today strict I/O TRC CHest PT DuoNeb Continue home medications Failed swallow evaluation. MBS done. Continue ground and nectar thick diet. Code: FC DVT PPx: ALPS Diet: ground with nectar thick Dispo: discharge to [facility] Problem List: 1. Acute renal failure 2. Dehydration 3. DEMENTIA (APHASIC) Pain Ratin Pain Location: n/a Pain Goal: Remain pain free Pain Plan: tylenol PRN Tomorrow's Labs & Rationales: none - dc to [facility] today
--- NOTE | 2017-10-23 08:03 | Patient Discharge Instructions ---
Discharge Instructions General Discharge Information You were seen/treated for: low blood pressure Special Instructions: please follow up with you PCP upon discharge Diet Recommended Diet: puree nectar thick Acute Coronary Syndrome Inclusion Criteria At DC or during hospital stay patient has or had the following: ACS DIAGNOSIS No Discharge Core Measures Meds if any: Prescribed or Continued at Discharge Meds if any: NOT Prescribed or Continued at Discharge Congestive Heart Failure Inclusion Criteria At DC or during hospital stay patient has or had the following: CHF DIAGNOSIS No Discharge Core Measures Meds if any: Prescribed or Continued at Discharge Meds if any: NOT Prescribed or Continued at Discharge Cerebrovascular accident Inclusion Criteria At DC or during hospital stay patient has or had the following: CVA/TIA Diagnosis No Discharge Core Measures Meds if any: Prescribed or Continued at Discharge Meds if any: NOT Prescribed or Continued at Discharge Venous thromboembolism Inclusion Criteria VTE Diagnosis No VTE Type NONE VTE Confirmed by (Test) NONE Discharge Core Measures - Per Current guidelines, there needs to be overlap - treatment for the first 5 days of Warfarin therapy. - If discharged on Warfarin prior to 5 days of - overlap therapy, the patient will need to be - assessed for post discharge needs including - *Post discharge parental anticoagulation - *Warfarin and/or parental anticoagulation education - *Follow up date to check INR post discharge At least 5 days overlap therapy as Inpatient No Meds if any: Prescribed or Continued at Discharge Note: Overlap Therapy is Warfarin and Anticoagulant Meds if any: NOT Prescribed or Continued at Discharge
[2017-10-23 08:15] LABS: ABSOLUTE BASOPHIL COUNT 0 /CUMM (0.0-0.2); ABSOLUTE EOSINOPHIL COUNT 0.2 /CUMM (0.0-0.7); ABSOLUTE GRANULOCYTE CT 5.7 /CUMM (1.4-6.5); ABSOLUTE LYMPH COUNT 2.5 /CUMM (1.2-3.4); ABSOLUTE MONOCYTE COUNT 0.8 /CUMM (0.10-0.60); BASOPHIL % 0.2 % (0.0-2.0); EOSINOPHIL % 2.3 % (0-5); GRANULOCYTE % 61.5 % (42.2-75.2); HEMATOCRIT 34.3 % (42-52); MEAN CORPUSCULAR HGB 31.9 PG (27.0-31.0); MEAN PLATELET VOLUME 7.9 FL (7.4-10.4); PLATELET COUNT 298 /CUMM (130-400); RBC DISTRIBUTION WIDTH 13.4 % (11.5-14.5); RED BLOOD CELL CT 3.65 /CUMM (4.70-6.10); WHITE BLOOD CELL COUNT 9.2 /CUMM (4.8-10.8)
[2017-10-23 11:33] VITALS: BP 106/62
--- NOTE | 2017-10-23 11:37 | PN- Att Addend ---
Attending Addendum Attending Brief Note 67M PMH HTN, gout, progressive aphasia brought in from [facility] for hypotension. 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 Over the past 8 years he went from working and speaking normally to his current state, which is bedbound, aphasic, and minimally interactive with his environment. He was found to be hypotension in ER 76/60, but this improved with IV hydration. Per daughter the patient has had a deep cough for 4 days. He is at his baseline mental status. He had TRACIE on admission that resolved. 1. Hypotension 2. TRACIE 3. Dehydration 4. Aphasia Plan - Stable for discharge back to [facility] - Barium swallow complete - Follow speech therapy recommendations - Elevate head of bed - Continue home meds - Spoke to family about grief counseling for themselves
--- NOTE | 2017-10-23 13:21 | Cons- Palliative Care ---
General Information and HPI Allergies/Medications Allergies: Coded Allergies: NO KNOWN ALLERGIES (08/17/11) Home Med List: Lactulose 10 GRAM/15 ML SOLUTION 30 ML PO BID CONSTIPATION (Reported) Loratadine (Claritin) 10 MG TABLET 1 TAB PO DAILY ALLERGY (Reported) Polyethylene Glycol 3350 (Miralax) 17 GRAM POWD.PACK 1 PAC PO DAILY CONSTIPATION (Reported) dissolve in water Sennosides (Senokot) 8.6 MG TABLET 1 TAB PO BID CONSTIPATION (Reported) Past History Medical History Blood Transfusion Hx No Neurological: dementia, APHASIA EENT: allergies Cardiovascular: CHF, hypertension Respiratory: bronchitis Gastrointestinal: CONSTIPATION Hepatic: NONE Renal: nephrolithiasis, GOUT Musculoskeletal: chronic back pain Psychiatric: anxiety, depression Endocrine: NONE Blood Disorders: IRON DEF. 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 Long-Term Facility Smoking Status: Former Smoker Functional Ability ADLs Needs Assist: dressing, eating, toileting, bathing. Ambulation: wheelchair IADLs Needs Assist: shopping, housework, finances, food prep, telephone, transportation, medication admin. Employment History Employment: [employer] retired Assessment/Plan Consult Acknowledgment - Thank you for your consult request.
== END 2017-10-23 12:50 | DRG 315 ==
LOC: ERH 03:40 → ERHI 06:02 → 1NO 06:02 → ENRESERV 12:37 → ENTRNSPT 13:19 → EDTRNSPTSTS 13:22 → 1NO 13:26 → CMPTRNSPT 13:47 → 1NO 10-22 08:54 → ENPENDDIS 10-23 10:21 → 1NO 10-23 12:50
PROVIDERS: Internal Medicine Cardiovascular Disease; Pediatrics; Student in an Organized Health Care Education/Training Program
DX: I95.9 Hypotension, unspecified (principal); R47.01 Aphasia; N17.9 Acute kidney failure, unspecified; I11.0 Hypertensive heart disease with heart failure; I50.9 Heart failure, unspecified; F03.90 Unspecified dementia, unspecified severity, without behavioral disturbance, psychotic disturbance, mood disturbance, and anxiety; E86.0 Dehydration; M10.9 Gout, unspecified; F32.9 Major depressive disorder, single episode, unspecified; F41.9 Anxiety disorder, unspecified; D50.9 Iron deficiency anemia, unspecified; G89.29 Other chronic pain; M54.9 Dorsalgia, unspecified; Z87.891 Personal history of nicotine dependence
CPT/HCPCS: 1NP; 36592; 71045; 74230; 81001; 82436; 87040; 87070; 87086; 87449; 87450; 93005; 93010; 99291; J7042